=== PATIENT | female | born 1965 | race Caucasian/White ===

== ENCOUNTER → 2017-12-26 | Outpatient (CLI) | payer OTHER | LOC: LAB 14:38 | PROVIDERS: ATTEND Internal Medicine | DX: J39.8 Other specified diseases of upper respiratory tract (principal) | CPT/HCPCS: 36415; 83516 ==

== ENCOUNTER → 2018-03-09 | Outpatient (CLI) | payer OTHER | LOC: LAB 13:37 | PROVIDERS: ATTEND Nurse Practitioner Family | DX: K52.9 Noninfective gastroenteritis and colitis, unspecified (principal) | CPT/HCPCS: 87493 ==

== ENCOUNTER 2018-05-04 12:41 | Inpatient (IN) | payer OTHER ==
[~2018-05-04] VITALS: Ht 167.6 cm; Wt 59.5 kg
--- NOTE | 2018-05-04 12:45 | ER Report ---
History and Physical Time Seen By MD: 12:45 HPI/ROS CHIEF COMPLAINT: Shortness of breath HISTORY OF PRESENT ILLNESS: This is a 53-year-old female who presents to the emergency department with increased shortness of breath over the last 2 weeks. Patient states that over the last couple weeks she's had increased shortness of breath, she has been traveling quite a bit for work. She's had a nonproductive cough. A few mild aches but no documented fevers. She has generalized weakness as well. 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 No nausea or vomiting. No diaphore sis. No chest pain. No rashes or headaches. REVIEW OF SYSTEMS: Constitutional: As above. Eyes: No discharge. ENT: No sore throat. Cardiovascular: No chest pain, no palpitations. Respiratory: As above. Gastrointestinal: No abdominal pain, no vomiting. Genitourinary: No hematuria. Musculoskeletal: No back pain. Skin: No rashes. Neurological: No headache. Allergies: Coded Allergies: Penicillins (Verified Allergy, Intermediate, rash, 05/04/18) Quinolones (Verified Allergy, Intermediate, tendonitis, 05/04/18) cat dander (Verified Allergy, Mild, Hives, 05/04/18) Uncoded Allergies: pollen (Adverse Reaction, Mild, sneeze, 05/04/18) Home Meds Reported Medications Calcium Carbonate (CALCIUM) 600 Mg Tablet, 600 MG PO DAILY 05/04/18 Multivitamin (MULTIVITAMINS) 1 Each Capsule, 1 EACH PO DAILY, CAPSULE 05/04/18 Budesonide (BUDESONIDE EC) 3 Mg Capdr...er 05/04/18 Venlafaxine Hcl (VENLAFAXINE HCL ER) 75 Mg Cap.er.24h 05/04/18 Topiramate (TOPIRAMATE) 100 Mg Tablet 05/04/18 Venlafaxine Hcl (VENLAFAXINE HCL ER) 150 Mg Cap.er.24h 05/04/18 Naratriptan Hcl (NARATRIPTAN HCL) 2.5 Mg Tablet 05/04/18 Sumatriptan Succinate (SUMATRIPTAN SUCCINATE) 100 Mg Tablet 05/04/18 Butalb/Acetaminophen/Caff 50-325-40 Mg (FIORICET 50-325-40) 1 Each Tablet 05/04/18 Erenumab-Aooe (Aimovig Autoinjector (2 Pack)) 70 Mg/Ml Auto.injct 05/04/18 Fluticasone Prop 50 Mcg Ns (FLONASE 50 MCG NS) 16 Gm [place].susp 05/04/18 Levothyroxine Sodium (LEVOTHYROXINE SODIUM) 100 Mcg Tablet 05/04/18 Past Medical/Surgical History The patient has a past medical and surgical history of subglottic stenosis, lymphatic colitis, celiac disease, hypothyroidism, uterine prolapse with suspension, knee surgery to remove a bone spur, subglottic dilation 8, endoscopy 2, colonoscopy 1. Reviewed Nurses Notes: Yes Constitutional Vital Sign - Last 24 Hours 05/04/18 05/04/18 05/04/18 05/04/18 12:47 12:48 13:00 13:11 Temp 97.7 Pulse 112 105 Resp 22 22 B/P (MAP) 103/72 (82) 103/72 105/91 (96) Pulse Ox 92 87 O2 Delivery Room Air 05/04/18 05/04/18 05/04/18 05/04/18 13:30 13:35 13:45 13:55 Pulse 101 101 Resp 22 18 B/P (MAP) 105/81 (89) O2 Flow Rate 2.0 05/04/18 05/04/18 05/04/18 05/04/18 13:55 14:04 14:04 14:05 Pulse 105 110 Resp 18 22 B/P (MAP) 109/88 (95) Pulse Ox 93 93 O2 Delivery Nasal Cannula O2 Flow Rate 2.0 05/04/18 05/04/18 05/04/18 05/04/18 14:30 14:35 15:00 15:05 Pulse 114 Resp 24 B/P (MAP) 113/86 (95) 95/76 (82) Pulse Ox 87 92 O2 Delivery Nasal Cannula O2 Flow Rate 2 Physical Exam General Appearance: The patient is alert, has no immediate need for airway protection and no signs of toxicity. Eyes: Pupils equal and round no pallor or injection. ENT, Mouth: Mucous membranes are moist. Respiratory: There are no retractions, lungs are clear to auscultation but dim in bilateral bases. Dullness to percussion Right lower lobe. Cardiovascular: Regular rate and rhythm, no murmurs, clicks or rubs. Gastrointestinal: Abdomen is soft and non tender, no masses, bowel sounds normal. Neurological: Alert and oriented 4. Moving all extremities. Following all commands. No focal neuro deficits. Skin: Warm and dry, no rashes. Musculoskeletal: Neck is supple non tender. Extremities are nontender, nonswollen and have full range of motion. DIFFERENTIAL DIAGNOSIS: After history and physical exam differential diagnosis was considered for shortness of breath including but not limited to pulmonary infectious process, COPD, asthma, pulmonary embolus and congestive heart failure. Medical Decision Making Data Points Result Diagram: 05/04/18 1256 05/04/18 1256 Laboratory Hematology Test 05/04/18 12:56 05/04/18 13:24 Red Blood Count 4.65 M/uL (4.17-5.56) Mean Corpuscular Volume 96.0 fL (80.0-96.0) Mean Corpuscular Hemoglobin 31.4 pg (26.0-33.0) Mean Corpuscular Hemoglobin Concent 32.7 g/dL (32.0-36.0) Red Cell Distribution Width 15.7 % (11.5-14.5) Mean Platelet Volume 9.0 fL (7.2-11.1) Neutrophils (%) (Auto) 62.5 % (39.4-72.5) Lymphocytes (%) (Auto) 29.2 % (17.6-49.6) Monocytes (%) (Auto) 7.3 % (4.1-12.4) Eosinophils (%) (Auto) 0.7 % (0.4-6.7) Basophils (%) (Auto) 0.3 % (0.3-1.4) Nucleated RBC Relative Count (auto) 0.1 /100WBC Neutrophils # (Auto) 5.1 K/uL (2.0-7.4) Lymphocytes # (Auto) 2.4 K/uL (1.3-3.6) Monocytes # (Auto) 0.6 K/uL (0.3-1.0) Eosinophils # (Auto) 0.1 K/uL (0.0-0.5) Basophils # (Auto) 0.0 K/uL (0.0-0.1) Nucleated RBC Absolute Count (auto) 0.01 K/uL D-Dimer Quantitative (PE/DVT) 0.57 ug/ml (0-0.50) Sodium Level 139 mmol/L (137-145) Potassium Level 3.5 mmol/L (3.5-5.0) Chloride Level 113 mmol/L (98-107) Carbon Dioxide Level 22 mmol/L (22-31) Blood Urea Nitrogen 14 mg/dl (7-18) Creatinine 1.00 mg/dl (0.52-1.04) Glomerular Filtration Rate Calc 57.6 Random Glucose 149 mg/dl (75-110) Calcium Level 8.7 mg/dl (8.4-10.2) Total Bilirubin 0.6 mg/dl (0.2-1.3) Aspartate Amino Transf (AST/SGOT) 38 U/L (0-35) Alanine Aminotransferase (ALT/SGPT) 79 U/L (0-56) Alkaline Phosphatase 103 U/L (0-126) Troponin I < 0.012 ng/ml B-Type Natriuretic Peptide 1520 pg/ml (0-100) Total Protein 6.4 g/dl (6.3-8.2) Albumin 3.7 g/dl (3.5-5.0) Influenza Virus Type A (PCR) Negative (NEGATIVE) Influenza Virus Type B (PCR) Negative (NEGATIVE) Chemistry Test 05/04/18 12:56 05/04/18 13:24 White Blood Count 8.2 k/uL (4.5-11.0) Red Blood Count 4.65 M/uL (4.17-5.56) Hemoglobin 14.6 g/dL (12.0-16.0) Hematocrit 44.7 % (34.0-47.0) Mean Corpuscular Volume 96.0 fL (80.0-96.0) Mean Corpuscular Hemoglobin 31.4 pg (26.0-33.0) Mean Corpuscular Hemoglobin Concent 32.7 g/dL (32.0-36.0) Red Cell Distribution Width 15.7 % (11.5-14.5) Platelet Count 325 K/uL (150-450) Mean Platelet Volume 9.0 fL (7.2-11.1) Neutrophils (%) (Auto) 62.5 % (39.4-72.5) Lymphocytes (%) (Auto) 29.2 % (17.6-49.6) Monocytes (%) (Auto) 7.3 % (4.1-12.4) Eosinophils (%) (Auto) 0.7 % (0.4-6.7) Basophils (%) (Auto) 0.3 % (0.3-1.4) Nucleated RBC Relative Count (auto) 0.1 /100WBC Neutrophils # (Auto) 5.1 K/uL (2.0-7.4) Lymphocytes # (Auto) 2.4 K/uL (1.3-3.6) Monocytes # (Auto) 0.6 K/uL (0.3-1.0) Eosinophils # (Auto) 0.1 K/uL (0.0-0.5) Basophils # (Auto) 0.0 K/uL (0.0-0.1) Nucleated RBC Absolute Count (auto) 0.01 K/uL D-Dimer Quantitative (PE/DVT) 0.57 ug/ml (0-0.50) Glomerular Filtration Rate Calc 57.6 Calcium Level 8.7 mg/dl (8.4-10.2) Total Bilirubin 0.6 mg/dl (0.2-1.3) Aspartate Amino Transf (AST/SGOT) 38 U/L (0-35) Alanine Aminotransferase (ALT/SGPT) 79 U/L (0-56) Alkaline Phosphatase 103 U/L (0-126) Troponin I < 0.012 ng/ml B-Type Natriuretic Peptide 1520 pg/ml (0-100) Total Protein 6.4 g/dl (6.3-8.2) Albumin 3.7 g/dl (3.5-5.0) Influenza Virus Type A (PCR) Negative (NEGATIVE) Influenza Virus Type B (PCR) Negative (NEGATIVE) Coagulation Test 05/04/18 12:56 D-Dimer Quantitative (PE/DVT) 0.57 ug/ml EKG/Imaging EKG Interpretation 12 lead EKG: Time of EKG 1304. Rhythm: Sinus tachycardia, ventricular rate 106 bpm., Occasional PVC. [place]: normal QRS: normal ST segments: No ST depression or elevation identified. Q waves in V1, V2, V3 and V4 with poor R-wave progression. No previous EKGs for comparison. Imaging Location: [facility] Patient: Rayne Pederson : 1965 Visit/Account:[id number] [facility] angiogram chest with contrast Indication: Shortness of breath. Elevated d-dimer. Comparison: None available. Technique: Axial CT images are obtained through the chest after administration of 75 mL Isovue 370 IV contrast. Reformatted coronal and sagittal images were reviewed as well as coronal MIP images. One of the following dose optimization techniques was utilized in the performance of this exam: automated exposure control; adjustment of the mA and/or kV according to the patient's size; or use of an iterative reconstruction technique. Specific details can be referenced in the facility's radiology CT exam operational policy. FINDINGS: No evidence of filling defect within the pulmonary vasculature to suggest pulmonary embolus. The heart is diffusely enlarged. No pericardial effusion. The aorta shows no indication of aneurysm. The aorta is not well opacified to assess for dissection. The mediastinum and hilar regions show a few small lymph nodes without enlarged lymph node or abnormal density. The lungs show small the moderate bilateral pleural effusions. There is hazy interstitial opacities suggestive edema. No consolidations, pneumothorax or discrete nodule. Airways are clear. Bony structures show no acute fractures or aggressive bony lesions. Chest wall shows no enlarged axillary lymph nodes or masses. Limited views of the upper abdomen are unremarkable. IMPRESSION: 1. No evidence of pulmonary embolus. 2. Cardiomegaly. Mild diffuse pulmonary edema. [id number] bilateral pleural effusions. Report Dictated By: Héctor Myles at 05/04/2018 2:06 PM Report E-Signed By: Héctor Myles at 05/04/2018 2:14 PM [id number] ED Course/Re-evaluation Clinical Indication for ER IV: Hydration, IV Access ED Course The patient was admitted to room. A history of square obtained. Differential diagnoses were considered. An IV was started. A CBC, CMP, troponin and BNP were obtained. A 1 L normal saline bolus was given.Unremarkable CBC, chemistry showing glucose 149, AST 38, ALT 79, negative troponin, BNP of 1520, d-dimer 0.57, negative influenza. A CTA of the chest was negative for pulmonary embolus, positive for bilateral pleural effusions, pulmonary edema. Cardiomegaly. EKG showing Q waves in V2, V3 and V4 with poor R-wave progression. No previous EKGs for comparison. No ST elevation. I did review the results with the patient. She was also given a DuoNeb and 40 mg IV Lasix. I reviewed the case with Dr. Long as noted below, the patient was admitted to the hospitalist services for hypoxia, pleural effusions and pulmonary edema. The patient was in agreement with the plan of care. 05/04/2018 2:57:16 pm I did speak with Dr. Long, the hospitalist quality control auditor, he's accepted the patient in the hospitalist services. Decision to Disposition Date: May 04, 2018 Decision to Disposition Time: 14:57 Depart Departure Latest Vital Signs Vital Signs Date Time Temp Pulse Resp B/P (MAP) Pulse Ox O2 Delivery O2 Flow Rate FiO2 05/04/18 15:05 92 Nasal Cannula 2 05/04/18 15:00 95/76 (82) 05/04/18 14:35 114 24 05/04/18 12:48 97.7 Impression: Primary Impression: Pulmonary edema Additional Impressions: Bilateral pleural effusion Hypoxia Condition: Improved Disposition: Admitted from ER Problem Qualifiers Primary Impression: Pulmonary edema Chronicity: acute Qualified Codes: J81.0 - Acute pulmonary edema ANDREA VACA LOGGING TRACTOR OPERATOR SWAMP-BC May 04, 2018 12:45
[2018-05-04] MEDS ORDERED: NS(*) 0.9% 1000 ML BAG 1,000 ML IV ONE (13:03)
--- NOTE | 2018-05-04 13:13 | EKG ---
FACILITY: [facility] [place] PATIENT NAME: JORGE GLOVER : [id number] MR: [id number] V: [id number] EXAM DATE: ORDERING PHYSICIAN: ANDREA VACA TECHNOLOGIST: CHET Karimi Reason : RESPIRATORY Blood Pressure : / mmHG Vent. Rate : 106 BPM Atrial Rate : 106 BPM P-R Int : 146 ms QRS Dur : 090 ms QT Int : 382 ms P-R-T Axes : 049 022 227 degrees QTc Int : 507 ms Sinus tachycardia with occasional premature ventricular complexes Septal infarct , age undetermined Abnormal ECG No previous ECGs available Confirmed by EMILIANO WHITTEN ([id number]) on 05/04/2018 2:53:31 PM Referred By: Confirmed By:EMILIANO WHITTEN
[2018-05-04 13:15] LABS: PLATELET COUNT, AUTOMATED 325 K/uL (150-450)
[2018-05-04] MEDS ORDERED: TOPI-28 PO (13:15)
[2018-05-04] MEDS ORDERED: VENL150C3 PO (13:15)
[2018-05-04] MEDS ORDERED: SUMA100T33 PO (13:15)
[2018-05-04] MEDS ORDERED: EREN70AU2 SUBQ (13:15)
[2018-05-04] MEDS ORDERED: BUTA1TAB14 PO (13:15)
[2018-05-04] MEDS ORDERED: LEVO-3 PO (13:15)
[2018-05-04] MEDS ORDERED: FLUT16SP19 ENA (13:15)
[2018-05-04] MEDS ORDERED: MULT1CAP59 PO (13:15)
[2018-05-04] MEDS ORDERED: NARA2.5T6 PO (13:15)
[2018-05-04] MEDS ORDERED: BUDE3CAP6 PO (13:15)
[2018-05-04] MEDS ORDERED: VENL75CA4 PO (13:15)
[2018-05-04] MEDS ORDERED: CALC600T63 PO (13:15)
[2018-05-04] MEDS ORDERED: NS(*) 0.9% 50 ML BAG 50 ML ONE (13:46)
[2018-05-04] MEDS ORDERED: IOPAMIDOL 76% 50 ML INFUS BTL 100 ML ONE (13:46)
[2018-05-04] MEDS ORDERED: FUROSEMIDE 40 MG/4 ML VIAL IVP ONE (13:55)
[2018-05-04] MEDS ORDERED: ALBUTEROL/IPRATROPIUM 3 ML NEB NEB ONE (13:55)
--- NOTE | 2018-05-04 14:19 | RADIOLOGY IMAGING REPORT ---
FACILITY: [facility] PATIENT NAME: Rayen Pederson : 1965 MR: [id number] V: [id number] EXAM DATE: ORDERING PHYSICIAN: ANDREA VACA TECHNOLOGIST: Location: [facility] [place] Patient: Rayne Pederson : 1965 Visit/Account:[id number] Date of Sevice: 05/04/2018 CT angiogram chest with contrast Indication: Shortness of breath. Elevated d-dimer. Comparison: None available. Technique: Axial CT images are obtained through the chest after administration of 75 mL Isovue 370 IV contrast. Reformatted coronal and sagittal images were reviewed as well as coronal MIP images. One of the following dose optimization techniques was utilized in the performance of this exam: auto mated exposure control; adjustment of the mA and/or kV according to the patient's size; or use of an iterative reconstruction technique. Specific details can be referenced in the facility's radiology C T exam operational policy. FINDINGS: No evidence of filling defect within the pulmonary vasculature to suggest pulmonary embolus. The heart is diffusely enlarged. No pericardial effusion. The aorta shows no indication of aneurysm. The aorta is not well opacified to assess for dissection. The mediastinum and hilar regions show a fe w small lymph nodes without enlarged lymph node or abnormal density. The lungs show small the moderate bilateral pleural effusions. There is hazy interstitial opacities s uggestive edema. No consolidations, pneumothorax or discrete nodule. Airways are clear. Bony structures show no acute fractures or aggressive bony lesions. Chest wall shows no enlarged axil romy lymph nodes or masses. Limited views of the upper abdomen are unremarkable. IMPRESSION: 1. No evidence of pulmonary embolus. 2. Cardiomegaly. Mild diffuse pulmonary edema. [id number]-[id number]-[id number] bilateral pleural effusions. Report Dictated By: Héctor Myles at 05/04/2018 2:06 PM Report E-Signed By: Héctor Myles at 05/04/2018 2:14 PM WSN:[id number]
[2018-05-04 15:45] VITALS: BP 117/81
--- NOTE | 2018-05-04 16:28 | History & Physical ---
History of Present Illness Chief Complaint Fatigue and shortness of breath. History of Present Illness This patient presented to the emergency room complaining of increased fatigue and shortness of breath. She reports that she started to have increased fatigue over the last 2 weeks. It has progressed to the point where she can no longer complete her activities of daily living. She also reports associated shortness of breath, which is worse when lying down. History Problems: (1) Celiac disease (2) Migraine (3) Hypothyroid Home Meds Reported Medications Calcium Carbonate (CALCIUM) 600 Mg Tablet, 600 MG PO DAILY 05/04/18 Multivitamin (MULTIVITAMINS) 1 Each Capsule, 1 EACH PO DAILY, CAPSULE 05/04/18 Budesonide (BUDESONIDE EC) 3 Mg Capdr...er 05/04/18 Venlafaxine Hcl (VENLAFAXINE HCL ER) 75 Mg Cap.er.24h 05/04/18 Topiramate (TOPIRAMATE) 100 Mg Tablet 05/04/18 Venlafaxine Hcl (VENLAFAXINE HCL ER) 150 Mg Cap.er.24h 05/04/18 Naratriptan Hcl (NARATRIPTAN HCL) 2.5 Mg Tablet 05/04/18 Sumatriptan Succinate (SUMATRIPTAN SUCCINATE) 100 Mg Tablet 05/04/18 Butalb/Acetaminophen/Caff 50-325-40 Mg (FIORICET 50-325-40) 1 Each Tablet 05/04/18 Erenumab-Aooe (Aimovig Autoinjector (2 Pack)) 70 Mg/Ml Auto.injct 05/04/18 Fluticasone Prop 50 Mcg Ns (FLONASE 50 MCG NS) 16 Gm [place].susp 05/04/18 Levothyroxine Sodium (LEVOTHYROXINE SODIUM) 100 Mcg Tablet 05/04/18 Allergies: Coded Allergies: Penicillins (Verified Allergy, Intermediate, rash, 05/04/18) Quinolones (Verified Allergy, Intermediate, tendonitis, 05/04/18) cat dander (Verified Allergy, Mild, Hives, 05/04/18) Uncoded Allergies: pollen (Adverse Reaction, Mild, sneeze, 05/04/18) Hx Alcohol Use: No Review of Systems All Systems Reviewed/Normal: Yes, Except as Noted Neurological: Weakness Respiratory: Shortness of Breath Exam Vital Signs Vital Signs Date Time Temp Pulse Resp B/P (MAP) Pulse Ox O2 Delivery O2 Flow Rate FiO2 05/04/18 15:48 93 05/04/18 15:45 96.8 109 22 117/81 (93) Room Air 05/04/18 15:05 2 Neuro: No Gross deficits Eyes: PERRLA Cardiovascular: Regular Rate and Rhythm, Other (JVD present.) Respiratory: Other (Bilateral pleural effusions present.) GI: Abd Soft and Non-Tender Extremities: No Edema Integumentary: No Cyanosis Medical Decision Making Data Points Result Diagram: 05/04/18 1256 05/04/18 1256 EKG / Imaging EKG Interpretation EKG reviewed. Imaging CT chest reviewed. Assessment and Plan Problems: (1) Acute heart failure Assessment & Plan: She did present with increased fatigue and shortness of breath. Her CT scan showed bilateral pleural effusions and cardiomegaly. Her BNP was also elevated. She did receive a dose of Lasix in the emergency dept. An echocardiogram has been ordered for further evaluation. (2) Hypothyroid Assessment & Plan: A TSH has been ordered. Venous Thromboembolism Antithrombotics Is Pt On Any Antithrombotics?: No Exam Sepsis Risk: Possible Sepsis Risk EMILIANO WHITTEN DO May 04, 2018 16:28
[2018-05-04 19:38] VITALS: BP 108/90
[2018-05-04] MEDS ORDERED: FUROSEMIDE 20 MG/2 ML VIAL IVP ONE (20:20)
[2018-05-04] MEDS ORDERED: TOPIRAMATE 100 MG TAB PO SCH (22:40)
[2018-05-04 23:18] VITALS: BP 91/75
[2018-05-05 05:21] VITALS: BP 106/79
[2018-05-05] MEDS ORDERED: LEVOTHYROXINE SOD 0.1 MG TAB PO SCH (06:00)
[2018-05-05 06:22] LABS: PLATELET COUNT, AUTOMATED 318 K/uL (150-450)
--- NOTE | 2018-05-05 06:50 | RADIOLOGY IMAGING REPORT ---
FACILITY: [facility] PATIENT NAME: Rayne Pederson : 1965 MR: [id number] V: [id number] EXAM DATE: ORDERING PHYSICIAN: EMILIANO WHITTEN TECHNOLOGIST: Location: [facility] Patient: Rayne Pederson : 1965 Visit/Account:[id number] Date of Sevice: 05/05/2018 TWO VIEW CHEST 05/05/2018 6:00 AM. INDICATION: Congestive heart failure. COMPARISON: CT yesterday. FINDINGS: Lungs are well-expanded. No definite focal consolidation no apparent pleural effusion or p neumothorax. Pulmonary vasculature is unremarkable. Borderline enlarged heart. IMPRESSION: Borderline enlarged heart with no apparent evidence of congestive heart failure. Report Dictated By: Dean Meehan MD at 05/05/2018 6:38 AM Report E-Signed By: Dean Meehan MD at 05/05/2018 6:41 AM WSN:[id number]
[2018-05-05 07:47] VITALS: BP 95/59
[2018-05-05] MEDS ORDERED: ACETAMINOPHEN 500 MG TAB PO PRN (09:15)
[2018-05-05] MEDS: POTASSIUM CHL 20 MEQ TABCR PO SCH ×2 (10:41→17:41)
[2018-05-05] MEDS ORDERED: VENLAFAXINE XR 75 MG CAPCR PO SCH (12:00)
[2018-05-05 12:02] VITALS: BP 98/59
--- NOTE | 2018-05-05 14:43 | Hospitalist Progress Note ---
Subjective Progress Notes Subjective 53F admitted for acute CHF. LISA overnight, improving with diuresis. Physical Exam Vital Signs Date Time Temp Pulse Resp B/P (MAP) Pulse Ox O2 Delivery O2 Flow Rate FiO2 05/05/18 12:02 97.8 99 18 98/59 (72) 91 Room Air 05/04/18 19:38 2.0 Intake and Output 05/05/18 07:00 Intake Total 1540 ml Output Total 3100 ml Balance -1560 ml Intake Oral 540 ml IV Total 1000 ml Output Urine Total 3100 ml # Voids 4 General Appearance: Alert, Awake, No Acute Distress, Afebrile ENT: Normal Cardiovascular: Normal Rhythm & Peripheral Pulses Respiratory: No Respiratory Distress GI: Soft and Non-Tender Extremities: Soft and Non Tender, Warm, Pulses, Perfused; No Edema Integumentary: Skin Intact without Lesion / Mass Result Diagram: 05/05/1855305/05/18553 Assessment and Plan Problems: (1) Acute heart failure Assessment & Plan: She did present with increased fatigue and shortness of breath. Her CT scan showed bilateral pleural effusions and cardiomegaly. Her BNP was also elevated. She did receive a dose of Lasix in the emergency dept. Echo shows 30-35% EF with severe mitral regurgitation, dilated ventricles with global hypokinesis. Discussed with Dr Li who recommends continuing with current management for CHF and outpatient follow up in Structural heart clinic ([phone]) for AB and LHC. Will likely need valve repair as outpatient after work up. (2) Hypothyroid Assessment & Plan: A TSH has been ordered. Exam Sepsis Risk: Sepsis Risk MATTEO CURTIS DO May 05, 2018 14:43
--- NOTE | 2018-05-05 15:06 | Medical Nutrition Therapy ---
Nutrition Anthropometrics Height (Inches): 66.00 Height (Calculated Centimeters: 167.738615 Weight (Pounds): 131 Weight (Calculated Kilograms): 59.534 BMI: 21.2 Florian Nutrition Score: Adequate Florian Nutrition Risk Score: 22 Dietary Referral Nutrition Risk Factors: Special Diet Nutrition Risk Comment: gluten free diet. Nutritional Diagnosis Nutritional Risk Acuity 1: Acute/ES Renal Nutritional Risk Acuity 3: Fair Appetite Nutrition Diagnosis: Decreased Nutrient Needs Nutrition Etiology: Physiological Causes Nutrition Problem/Etiology/Sym: Decreased Na, phos, protein, K+ r/t dx ARF AEB creatinine 1.1. Energy Requirement: 1570 (M- St J) Protein Requirement: 47 Diet Type: Gluten Free Nutrition Intervention: Cont diet as ordered, Encourage intake Nutrition Monitoring & Eval Nutrition Goals: Eat 75-100% Meal RD Patient Assessment Time: [address] Assessment Type: RD Assessment Patient Nutrition Acuity: 2-Moderate Follow Up Date: May 08, 2018 Nutritional Comment: 2/1 Pt admitted for ARF. Pt on gluten free diet and ate 75% of first meal in facility. alb 3.1, BUN 14, creatinine 1.1. Bg 119-145. Will cont to monitor and encourage intake. BRENNA REID May 05, 2018 15:06
[2018-05-05 15:53] VITALS: BP 93/74
[2018-05-05] MEDS ORDERED: METOPROLOL SUCC XL 25 MG TABCR PO ONE (17:20)
[2018-05-05] MEDS ORDERED: FURO-45 PO (17:36)
[2018-05-05] MEDS ORDERED: POTA20TA94 PO (17:36)
[2018-05-05] MEDS ORDERED: METO25TA23 PO (17:36)
--- NOTE | 2018-05-05 17:44 | Hospitalist Depart ---
Discharge Summary Reason for Hosp/Final Diag: (1) Acute heart failure Hospital Course & Plan: She did present with increased fatigue and shortness of breath. Her CT scan showed bilateral pleural effusions and cardiomegaly. Her BNP was also elevated. She received a dose of Lasix in the emergency dept. Echo shows 30-35% EF with severe mitral regurgitation, dilated ventricles with global hypokinesis. Discussed with Dr Li who recommends starting beta matthew and diuretic and outpatient follow up in Structural heart clinic ([phone]) for AB and LHC. She has history of Celiac, hyothyroid, and positive PARRISH which have been associated with HF. Will likely need valve repair as outpatient after work up. Metoprolol succinate chosen for BB to minimize impact on BP. (2) Hypothyroid Hospital Course & Plan: A TSH has been ordered and is pending at discharge. Departure Weight (Pounds): 131 Weight (Ounces): 4.0 Result Diagram: 05/05/1855305/05/18553 Condition: Improved Discharge: Home Discharge Instructions Home Meds Active Scripts Potassium Chloride (POTASSIUM CHLORIDE) 20 Meq Tab.er.prt, 20 MEQ PO Q48H for 30 Days, #15 TAB Prov:MATTEO CURTIS DO 05/05/18 Furosemide (FUROSEMIDE) 20 Mg Tablet, 1 TAB PO Q24H for 30 Days, #30 TAB Prov:MATTEO CURTIS DO 05/05/18 Metoprolol Succinate (METOPROLOL SUCCINATE) 25 Mg Tab.er.24h, 12.5 MG PO ONCE for 30 Days, #30 TAB Take one half tablet daily. Prov:MATTEO CURTIS DO 05/05/18 Reported Medications Calcium Carbonate (CALCIUM) 600 Mg Tablet, 600 MG PO DAILY 05/04/18 Multivitamin (MULTIVITAMINS) 1 Each Capsule, 1 EACH PO DAILY, CAPSULE 05/04/18 Budesonide (BUDESONIDE EC) 3 Mg Capdr...er, 3 MG PO QDAY START WITH 3 CAPSULES PO QD FOR 2 MONTHS, THEN 2 CAPSULES PO QD FOR 1 MONTH, THEN 1 CAPSULE PO QD FOR 1 MONTH 05/04/18 Venlafaxine Hcl (VENLAFAXINE HCL ER) 75 Mg Cap.er.24h, 225 MG PO QDAY TAKE ONE 150 MG CAPSULE + ONE 75 MG CAPSULE = 225 MG DAILY 05/04/18 Topiramate (TOPIRAMATE) 100 Mg Tablet, 100 MG PO HS FOR MIGRAINE PREVENTION 05/04/18 Venlafaxine Hcl (VENLAFAXINE HCL ER) 150 Mg Cap.er.24h, 225 MG PO QDAY 05/04/18 Naratriptan Hcl (NARATRIPTAN HCL) 2.5 Mg Tablet, 2.5 MG PO TAKE ONE TABLET BY MOUTH AT ONSET OF MIGRAINE, MAY TAKE ONE ADDITIONAL TABLET 4 HOURS LATER NEEDED 05/04/18 Sumatriptan Succinate (SUMATRIPTAN SUCCINATE) 100 Mg Tablet, 100 MG PO QDAY PRN for MIGRAINE MAX 1 TABLETS IN 24 HOURS 05/04/18 Butalb/Acetaminophen/Caff 50-325-40 Mg (FIORICET 50-325-40) 1 Each Tablet, 1 TAB PO Q6H PRN for MIGRAINE 05/04/18 Erenumab-Aooe (Aimovig Autoinjector (2 Pack)) 70 Mg/Ml Auto.injct, 2 ML SUBQ Q30D FOR MIGRAINE PREVENTION 05/04/18 Fluticasone Prop 50 Mcg Ns (FLONASE 50 MCG NS) 16 Gm [place].susp, 2 SPRAYS [place] QDAY 05/04/18 Levothyroxine Sodium (LEVOTHYROXINE SODIUM) 100 Mcg Tablet, 100 MCG PO QAM 05/04/18 Special Instructions: Weigh daily until cardiology appointment if weight increases by 3lb in one day or 5lb in 2 days take extra dose of furosemide. Venous Thromboembolism Antithrombotics Is Pt On Any Antithrombotics?: No MATTEO CUTRIS DO May 05, 2018 17:44
[2018-05-05 18:00] VITALS: BP 87/66
[2018-05-05 18:49] VITALS: BP 97/76
[2018-05-06] MEDS ORDERED: INFLUENZA VIRUS VAC 0.5ML SYR IM ONLY ONE (16:05)
== END 2018-05-05 19:10 | disposition home or self-care (01) | DRG 293 ==
LOC: ER 12:50 → MED 15:07
PROVIDERS: ADMIT Family Medicine; ATTEND Family Medicine
DX: I50.9 Heart failure, unspecified (principal); K90.0 Celiac disease; I34.0 Nonrheumatic mitral (valve) insufficiency; E03.9 Hypothyroidism, unspecified; K52.832 Lymphocytic colitis; J38.6 Stenosis of larynx; R09.02 Hypoxemia; Z88.0 Allergy status to penicillin
CPT/HCPCS: 36415; 71046; 71275; 82040; 82247; 82310; 82374; 82435; 82565; 82947; 83880; 84075; 84132; 84155; 84295; 84443; 84450; 84460; 84484; 84520; 85025; 85379; 85651; 87502; 93005; 94640; 96361; 96375; 99284; J1940; J7030; J7050; Q9967

== ENCOUNTER → 2018-06-02 | Outpatient (CLI) | payer OTHER ==
[~2018-06-02] MED LIST: ACET-1966 PO; BUDE3CAP6 PO; BUTA1TAB14 PO; CALC600T63 PO; EREN70AU2 SUBQ; FLUT16SP19 ENA; FURO-45 PO; LEVO-3 PO; LISI2.5T60 PO; METO25TA23 PO; MULT1CAP59 PO; NARA2.5T6 PO; POTA20TA94 PO; SUMA100T33 PO; TOPI-28 PO; VENL150C3 PO; VENL75CA4 PO; amberen PO
[2018-06-02 13:06] LABS: PLATELET COUNT, AUTOMATED 220 K/uL (150-450)
--- NOTE | 2018-06-02 15:32 | EKG ---
FACILITY: [facility] [place] PATIENT NAME: JORGE GLOVER : [id number] MR: [id number] V: [id number] EXAM DATE: ORDERING PHYSICIAN: BETTINA MCINTOSH TECHNOLOGIST: LEAH DAY Test Reason : CHF Blood Pressure : / mmHG Vent. Rate : 082 BPM Atrial Rate : 082 BPM P-R Int : 168 ms QRS Dur : 104 ms QT Int : 412 ms P-R-T Axes : 070 -60 -82 degrees QTc Int : 481 ms Normal sinus rhythm Left anterior fascicular block ST and T wave abnormality, consider anterolateral ischemia Prolonged QT Abnormal ECG No previous ECGs available Referred By: Confirmed By:
== END ==
LOC: LAB 12:24
PROVIDERS: ATTEND Emergency Medicine
DX: B33.24 Viral cardiomyopathy (principal)
CPT/HCPCS: 36415; 82040; 82247; 82310; 82374; 82435; 82565; 82947; 83880; 84075; 84132; 84155; 84295; 84443; 84450; 84460; 84484; 84520; 85025

== ENCOUNTER → 2018-06-02 | Outpatient (CLI) | payer OTHER | LOC: LAB 17:08 | PROVIDERS: ATTEND Emergency Medicine | DX: R74.8 Abnormal levels of other serum enzymes (principal) | CPT/HCPCS: 36415; 84484 ==

== ENCOUNTER 2018-06-11 11:12 | Emergency (ER) | payer OTHER ==
--- NOTE | 2018-06-11 11:25 | ER Report ---
History and Physical Time Seen By MD: 11:25 HPI/ROS CHIEF COMPLAINT: Lightheadedness, numbness to the left side of body, visual changes HISTORY OF PRESENT ILLNESS: 53-year-old female patient presents to emergency room with complaint of lightheadedness, numbness in left side of body and visual changes. Patient states that it feels as if she has an aura for a migraine. She does have a history of migraines and has had numerous migraines per month for several years. She is currently been on a new medication and has not had a migraine for month and a half. Patient states that she was getting ready for yazdanism, stood up and felt very lightheaded. Shortly after that the rest the symptoms started. Patient denies any weakness, nausea, vomiting or diarrhea. Patient states she straightened have a headache to the right side of head. Patient normally takes Imitrex with good relief for her migraines. REVIEW OF SYSTEMS: Respiratory: No cough, no dyspnea. Cardiovascular: No chest pain, no palpitations. Gastrointestinal: No vomiting, no abdominal pain. Musculoskeletal: No back pain. Allergies: Coded Allergies: Penicillins (Verified Allergy, Intermediate, rash, 06/11/18) Quinolones (Verified Allergy, Intermediate, tendonitis, 06/11/18) cat dander (Verified Allergy, Mild, Hives, 06/11/18) gluten (Verified Allergy, Unknown, 06/11/18) Celiac's disease Uncoded Allergies: pollen (Adverse Reaction, Mild, sneeze, 05/04/18) Home Meds Active Scripts Potassium Chloride (POTASSIUM CHLORIDE) 20 Meq Tab.er.prt, 20 MEQ PO DAILY for 30 Days, #15 TAB Prov:BETTINA MCINTOSH MD 06/02/18 Furosemide (FUROSEMIDE) 20 Mg Tablet, 1 TAB PO Q24H for 30 Days, #30 TAB Prov:MATTEO CURTIS DO 05/05/18 Metoprolol Succinate (METOPROLOL SUCCINATE) 25 Mg Tab.er.24h, 12.5 MG PO ONCE for 30 Days, #30 TAB Take one half tablet daily. Prov:MATTEO CURTIS DO 05/05/18 Reported Medications [amberen] No Conflict Check, 1 CAP PO PRN 06/02/18 Acetaminophen (TYLENOL) 325 Mg Tablet, 325 MG PO PRN, TAB 06/02/18 Lisinopril (LISINOPRIL) 2.5 Mg Tablet, 2.5 MG PO BID 06/02/18 Calcium Carbonate (CALCIUM) 600 Mg Tablet, 600 MG PO DAILY 05/04/18 Multivitamin (MULTIVITAMINS) 1 Each Capsule, 1 EACH PO DAILY, CAPSULE 05/04/18 Budesonide (BUDESONIDE EC) 3 Mg Capdr...er, 3 MG PO QDAY START WITH 3 CAPSULES PO QD FOR 2 MONTHS, THEN 2 CAPSULES PO QD FOR 1 MONTH, THEN 1 CAPSULE PO QD FOR 1 MONTH 05/04/18 Venlafaxine Hcl (VENLAFAXINE HCL ER) 75 Mg Cap.er.24h, 225 MG PO QDAY TAKE ONE 150 MG CAPSULE + ONE 75 MG CAPSULE = 225 MG DAILY 05/04/18 Topiramate (TOPIRAMATE) 100 Mg Tablet, 100 MG PO HS FOR MIGRAINE PREVENTION 05/04/18 Venlafaxine Hcl (VENLAFAXINE HCL ER) 150 Mg Cap.er.24h, 225 MG PO QDAY 05/04/18 Naratriptan Hcl (NARATRIPTAN HCL) 2.5 Mg Tablet, 2.5 MG PO TAKE ONE TABLET BY MOUTH AT ONSET OF MIGRAINE, MAY TAKE ONE ADDITIONAL TABLET 4 HOURS LATER NEEDED 05/04/18 Sumatriptan Succinate (SUMATRIPTAN SUCCINATE) 100 Mg Tablet, 100 MG PO QDAY PRN for MIGRAINE MAX 1 TABLETS IN 24 HOURS 05/04/18 Erenumab-Aooe (Aimovig Autoinjector (2 Pack)) 70 Mg/Ml Auto.injct, 2 ML SUBQ Q30D FOR MIGRAINE PREVENTION 05/04/18 Fluticasone Prop 50 Mcg Ns (FLONASE 50 MCG NS) 16 Gm [place].susp, 2 SPRAYS JUANJO QDAY 05/04/18 Levothyroxine Sodium (LEVOTHYROXINE SODIUM) 100 Mcg Tablet, 100 MCG PO QAM 05/04/18 Past Medical/Surgical History Patient has a past medical history of migraines, myocarditis, subglottic st enosis, lymphocytic colitis, celiac disease, hypothyroidism, depression. Patient has surgical history of a uterine suspension, Sascha's procedure, subglottic dilation 8, uterine suspension, bone spur knee, LASIK eye surgery endoscopy 2, colonoscopy 1. Reviewed Nurses Notes: Yes Hx Smoking: No Smoking Status: Never Smoker Exposure to Second Hand Smoke?: No Hx Substance Use Disorder: No Hx Alcohol Use: No Constitutional Vital Sign - Last 24 Hours 06/11/18 06/11/18 06/11/18 06/11/18 11:12 11:18 11:24 11:30 Temp 98.2 Pulse 82 89 Resp 12 B/P (MAP) 107/57 (74) 107/57 91/71 (78) Pulse Ox 95 O2 Delivery Room Air 06/11/18 06/11/18 06/11/18 06/11/18 11:42 12:00 12:12 12:30 Pulse 80 83 Resp 19 B/P (MAP) 95/67 (76) 96/77 (83) Pulse Ox 89 06/11/18 06/11/18 06/11/18 06/11/18 12:42 13:00 13:05 13:30 Pulse 89 87 Resp 16 15 B/P (MAP) 107/74 (85) 92/66 (75) Pulse Ox 91 91 06/11/18 06/11/18 13:35 14:00 Pulse 82 Resp 22 B/P (MAP) 92/70 (77) Pulse Ox 90 Physical Exam General Appearance: The patient is alert, has no immediate need for airway protection and no current signs of toxicity. Respiratory: Chest is non tender, lungs are clear to auscultation. Cardiac: regular rate and rhythm Gastrointestinal: Abdomen is soft and non tender, no masses, bowel sounds normal. Musculoskeletal: Neck: Neck is supple and non tender. Extremities have full range of motion and are non tender. Skin: No rashes or lesions. Neuro: Patient is alert and oriented 4, cranial nerves II through XII grossly intact. DIFFERENTIAL DIAGNOSIS: After history and physical exam differential diagnosis was considered for atypical migraine, stroke, [place], CHF exacerbation. Medical Decision Making Data Points Result Diagram: 06/11/18 1124 06/11/18 1124 Laboratory Hematology Test 06/11/18 11:24 Red Blood Count 4.66 M/uL (4.17-5.56) Mean Corpuscular Volume 94.8 fL (80.0-96.0) Mean Corpuscular Hemoglobin 31.5 pg (26.0-33.0) Mean Corpuscular Hemoglobin Concent 33.2 g/dL (32.0-36.0) Red Cell Distribution Width 14.4 % (11.5-14.5) Mean Platelet Volume 9.2 fL (7.2-11.1) Neutrophils (%) (Auto) 59.7 % (39.4-72.5) Lymphocytes (%) (Auto) 29.4 % (17.6-49.6) Monocytes (%) (Auto) 8.4 % (4.1-12.4) Eosinophils (%) (Auto) 1.9 % (0.4-6.7) Basophils (%) (Auto) 0.6 % (0.3-1.4) Nucleated RBC Relative Count (auto) 0.3 /100WBC Neutrophils # (Auto) 3.5 K/uL (2.0-7.4) Lymphocytes # (Auto) 1.7 K/uL (1.3-3.6) Monocytes # (Auto) 0.5 K/uL (0.3-1.0) Eosinophils # (Auto) 0.1 K/uL (0.0-0.5) Basophils # (Auto) 0.0 K/uL (0.0-0.1) Nucleated RBC Absolute Count (auto) 0.01 K/uL Erythrocyte Sedimentation Rate 2 mm/HOUR (0-30) Sodium Level 142 mmol/L (137-145) Potassium Level 3.5 mmol/L (3.5-5.0) Chloride Level 109 mmol/L (98-107) Carbon Dioxide Level 23 mmol/L (22-31) Blood Urea Nitrogen 14 mg/dl (7-18) Creatinine 0.90 mg/dl (0.52-1.04) Glomerular Filtration Rate Calc > 60.0 Random Glucose 110 mg/dl (75-110) Calcium Level 9.0 mg/dl (8.4-10.2) Total Bilirubin 0.4 mg/dl (0.2-1.3) Aspartate Amino Transf (AST/SGOT) 40 U/L (0-35) Alanine Aminotransferase (ALT/SGPT) 47 U/L (0-56) Alkaline Phosphatase 125 U/L (0-126) Troponin I < 0.012 ng/ml C-Reactive Protein 1.4 mg/dl (<1.0) B-Type Natriuretic Peptide 1650 pg/ml (0-100) Total Protein 6.7 g/dl (6.3-8.2) Albumin 3.8 g/dl (3.5-5.0) Chemistry Test 06/11/18 11:24 White Blood Count 5.9 k/uL (4.5-11.0) Red Blood Count 4.66 M/uL (4.17-5.56) Hemoglobin 14.6 g/dL (12.0-16.0) Hematocrit 44.2 % (34.0-47.0) Mean Corpuscular Volume 94.8 fL (80.0-96.0) Mean Corpuscular Hemoglobin 31.5 pg (26.0-33.0) Mean Corpuscular Hemoglobin Concent 33.2 g/dL (32.0-36.0) Red Cell Distribution Width 14.4 % (11.5-14.5) Platelet Count 258 K/uL (150-450) Mean Platelet Volume 9.2 fL (7.2-11.1) Neutrophils (%) (Auto) 59.7 % (39.4-72.5) Lymphocytes (%) (Auto) 29.4 % (17.6-49.6) Monocytes (%) (Auto) 8.4 % (4.1-12.4) Eosinophils (%) (Auto) 1.9 % (0.4-6.7) Basophils (%) (Auto) 0.6 % (0.3-1.4) Nucleated RBC Relative Count (auto) 0.3 /100WBC Neutrophils # (Auto) 3.5 K/uL (2.0-7.4) Lymphocytes # (Auto) 1.7 K/uL (1.3-3.6) Monocytes # (Auto) 0.5 K/uL (0.3-1.0) Eosinophils # (Auto) 0.1 K/uL (0.0-0.5) Basophils # (Auto) 0.0 K/uL (0.0-0.1) Nucleated RBC Absolute Count (auto) 0.01 K/uL Erythrocyte Sedimentation Rate 2 mm/HOUR (0-30) Glomerular Filtration Rate Calc > 60.0 Calcium Level 9.0 mg/dl (8.4-10.2) Total Bilirubin 0.4 mg/dl (0.2-1.3) Aspartate Amino Transf (AST/SGOT) 40 U/L (0-35) Alanine Aminotransferase (ALT/SGPT) 47 U/L (0-56) Alkaline Phosphatase 125 U/L (0-126) Troponin I < 0.012 ng/ml C-Reactive Protein 1.4 mg/dl (<1.0) B-Type Natriuretic Peptide 1650 pg/ml (0-100) Total Protein 6.7 g/dl (6.3-8.2) Albumin 3.8 g/dl (3.5-5.0) EKG/Imaging Imaging Technique: CHEST PA LAT HISTORY: chf COMPARISON: Chest radiographs 05/05/2018 Findings: The lungs are clear. No pleural effusion or pneumothorax. The cardiomediastinal silhouette is unchanged. Impression: 1. No acute cardiopulmonary process. 2. Cardiomegaly. Report Dictated By: Zackery Romo DO at 06/11/2018 12:06 PM Report E-Signed By: Zackery Romo DO at 06/11/2018 12:[address] OF THE BRAIN WITHOUT CONTRAST HISTORY: Headache with left-sided numbness. PROCEDURE: 3.0 mm contiguous axial sections were performed through the brain. Sagittal and coronal reformats were submitted. COMPARISON: MRA head August 19, 2009. FINDINGS: BRAIN: Brain and intracranial structures: There is no mass lesion, hemorrhage or acute infarct. Small area of hypoattenuation in the right basal ganglia region may correspond to an old infarct. Orbits (included portions): Normal. Scalp: Normal. Skull: Normal. Paranasal sinuses and mastoid air cells (included portions): Normal. IMPRESSION: No evidence of acute intracranial abnormality. One of the following dose optimization techniques was utilized in the performance of this exam: Automated exposure control; adjustment of the mA and/o r kV according to the patient's size; or use of an iterative reconstruction technique. Specific details can be referenced in the facility's radiology CT exam operational policy. Report Dictated By: Manny Mg MD at 06/11/2018 12:02 PM Report E-Signed By: Manny Mg MD at 06/11/2018 12:15 PM ED Course/Re-evaluation ED Course She was admitted exam room, history and physical were obtained. Differential diagnoses were considered. On examination lungs are clear, heart is regular, abdomen soft nontender. Neurologically patient is intact although she does have some decreased sensation. Patient is able to have equal soup mixer strength, and equal strength in all extremities. Patient had no facial droop. A CT scan of the head was done, a CBC, CMP, BNP, troponin, EKG. The results of lab work were unremarkable. Patient did have a normal rhythm with a new left anterior fascicular block when compared with previous EKG. CT scan of the head was negative, chest x-ray was normal except for cardiomegaly. BNP was 1650, exactly what it had been on June 02, the last time that it was checked. Patient did get 500 cc of normal saline, the latter to drink. We did give her Imitrex. That did help resolve her headache which developed while she was here and she did have decreased numbness sensation current time she was here. We will go ahead and discharge patient home at this time. She is taking with her normal medication. I would like her to follow-up with her field traffic investigator as scheduled. She is to follow-up with her primary care provider this next week. Patient and her verbalized understanding and agreement with plan. Decision to Disposition Date: Jun 11, 2018 Decision to Disposition Time: 14:02 Depart Departure Latest Vital Signs Vital Signs Date Time Temp Pulse Resp B/P (MAP) Pulse Ox O2 Delivery O2 Flow Rate FiO2 06/11/18 14:00 92/70 (77) 06/11/18 13:35 82 22 90 06/11/18 11:24 98.2 Room Air Impression: Primary Impression: Migraine Condition: Improved Disposition: HOME OR SELF-CARE Referrals: BETTINA MCINTOSH MD (PCP) Patient Instructions: Migraine Headache (ED) Additional Instructions: Continue with your daily wieghts. Follow up with your field traffic investigator as scheduled. Follow up with your primary care provider in the next week. Take your medications as prescribed. Return to the ER if condition worsens. Get plenty of rest. Problem Qualifiers Primary Impression: Migraine Migraine type: with aura Status migrainosus presence: without status migrainosus Intractability: not intractable Qualified Codes: G43.109 - Migraine with aura, not intractable, without status migrainosus JOHN BEAVER Jun 11, 2018 11:25
[2018-06-11 11:42] LABS: PLATELET COUNT, AUTOMATED 258 K/uL (150-450)
--- NOTE | 2018-06-11 12:10 | RADIOLOGY IMAGING REPORT ---
FACILITY: [facility] PATIENT NAME: Rayne Pederson : 1965 MR: [id number] V: [id number] EXAM DATE: ORDERING PHYSICIAN: JOHN BEAVER TECHNOLOGIST: Location: [facility] Patient: Rayne Pederson : 1965 Visit/Account:[id number] Date of Sevice: 06/11/2018 Technique: CHEST PA LAT HISTORY: chf COMPARISON: Chest radiographs 05/05/2018 Findings: The lungs are clear. No pleural effusion or pneumothorax. The cardiomediastinal silhouett e is unchanged. Impression: 1. No acute cardiopulmonary process. 2. Cardiomegaly. Report Dictated By: Zackery Romo DO at 06/11/2018 12:06 PM Report E-Signed By: Zackery Romo DO at 06/11/2018 12:07 PM WSN:[id number]
[2018-06-11] MEDS ORDERED: NS(*) 0.9% 500 ML BAG 500 ML IV ONE (12:15)
[2018-06-11] MEDS ORDERED: SUMAtriptan SUCC 25MG TAB PO ONE (12:15)
--- NOTE | 2018-06-11 12:18 | RADIOLOGY IMAGING REPORT ---
FACILITY: [facility] PATIENT NAME: Rayne Pederson : 1965 MR: [id number] V: [id number] EXAM DATE: ORDERING PHYSICIAN: JOHN BEAVER TECHNOLOGIST: Location: [facility] Patient: Rayne Pederson : 1965 Visit/Account:[id number] Date of Sevice: 06/11/2018 CT OF THE BRAIN WITHOUT CONTRAST HISTORY: Headache with left-sided numbness. PROCEDURE: 3.0 mm contiguous axial sections were performed through the brain. Sagittal and coronal r eformats were submitted. COMPARISON: MRA head August 19, 2009. FINDINGS: BRAIN: Brain and intracranial structures: There is no mass lesion, hemorrhage or acute infarct. Small area o f hypoattenuation in the right basal ganglia region may correspond to an old infarct. Orbits (included portions): Normal. Scalp: Normal. Skull: Normal. Paranasal sinuses and mastoid air cells (included portions): Normal. IMPRESSION: No evidence of acute intracranial abnormality. One of the following dose optimization techniques was utilized in the performance of this exam: Autom ated exposure control; adjustment of the mA and/or kV according to the patient's size; or use of an i terative reconstruction technique. Specific details can be referenced in the facility's radiology C T exam operational policy. Report Dictated By: Manny Mg MD at 06/11/2018 12:02 PM Report E-Signed By: Manny Mg MD at 06/11/2018 12:15 PM WSN:[id number]
--- NOTE | 2018-06-11 13:28 | EKG ---
FACILITY: [facility] PATIENT NAME: JORGE GLOVER : [id number] MR: [id number] V: [id number] EXAM DATE: ORDERING PHYSICIAN: JOHN BEAVER TECHNOLOGIST: MARITZA Test Reason : DIZZY Blood Pressure : / mmHG Vent. Rate : 086 BPM Atrial Rate : 086 BPM P-R Int : 174 ms QRS Dur : 098 ms QT Int : 392 ms P-R-T Axes : 024 -53 223 degrees QTc Int : 469 ms Normal sinus rhythm Left anterior fascicular block Septal infarct , age undetermined ST and T wave abnormality, consider lateral ischemia Abnormal ECG When compared with ECG of 02-JUN-2018 12:37, No significant change was found Confirmed by EMILIANO WHITTEN ([id number]) on 06/12/2018 2:08:48 AM Referred By: David BEAVER Confirmed By:EMILIANO WHITTEN
[2018-06-11 14:00] VITALS: BP 92/70
== END 2018-06-11 14:10 | disposition home or self-care (01) ==
LOC: ER 11:34
DX: G43.109 Migraine with aura, not intractable, without status migrainosus (principal); I44.4 Left anterior fascicular block; I50.9 Heart failure, unspecified; I51.7 Cardiomegaly
CPT/HCPCS: 70450; 71046; 83880; 84484; 85025; 85651; 86140; 93005; 96360; 96361; 99284; J7040; 82040; 82247; 82310; 82374; 82435; 82565; 82947; 84075; 84132; 84155; 84295; 84450; 84460; 84520

== ENCOUNTER 2018-06-16 11:46 | Outpatient (RCR) | payer OTHER ==
[~2018-06-16 11:46] MED LIST changes: -LEV125 PO
[2018-06-16] MEDS ORDERED: LIDOCAINE/SOD BICARB 8.4% SYR ID PRN (12:00)
[2018-06-16] MEDS ORDERED: DEXTROSE 5%(*) 100 ML BAG 100 ML IVPB PRN (12:00)
[2018-06-16] MEDS ORDERED: D5NS 500 ML BAG 500 ML IV PRN (12:00)
[2018-06-16] MEDS ORDERED: NS(*) 0.9% 100 ML BAG 100 ML IVPB PRN (12:00)
[2018-06-16] MEDS ORDERED: POTA20TA94 PO (14:08)
[2018-06-16] MEDS ORDERED: LEV125 PO (14:24)
[2018-06-26] MEDS ORDERED: APIX5TAB PO (16:00)
[2018-06-28] MEDS ORDERED: ASPI-1471 PO (17:16)
[2018-07-28] MEDS ORDERED: LEV125 PO (15:41)
[2018-08-17] MEDS ORDERED: SPIR25TA80 PO (16:47)
[2018-08-17] MEDS ORDERED: METO25TA93 PO (16:48)
[2018-08-17] MEDS ORDERED: FURO-45 PO (16:48)
[2018-08-17] MEDS ORDERED: ONDA4TAB9 PO (19:07)
== END 2018-09-04 16:35 | disposition home or self-care (01) ==
LOC: SPU 11:46
PROVIDERS: ATTEND Emergency Medicine
DX: E86.0 Dehydration (principal)
CPT/HCPCS: 96360; J7042

== ENCOUNTER → 2018-06-16 | Outpatient (CLI) | payer OTHER ==
[~2018-06-16] MED LIST changes: +LEV125 PO
[2018-06-16 11:45] LABS: PLATELET COUNT, AUTOMATED 254 K/uL (150-450)
[2018-06-16 12:10] LABS: LDL CHOLESTEROL 86 mg/dl
== END ==
LOC: LAB 11:14
PROVIDERS: ATTEND Emergency Medicine
DX: I42.9 Cardiomyopathy, unspecified (principal); R63.0 Anorexia; E87.6 Hypokalemia
CPT/HCPCS: 36415; 82040; 82247; 82310; 82374; 82378; 82435; 82465; 82565; 82607; 82947; 83718; 83735; 84075; 84132; 84155; 84295; 84443; 84450; 84460; 84478; 84520; 85025; 86140; 86301; 86304

== ENCOUNTER → 2018-06-23 | Outpatient (CLI) | payer OTHER ==
[~2018-06-23] MED LIST changes: +APIX5TAB PO; +LEV125 PO
--- NOTE | 2018-06-23 12:22 | RADIOLOGY IMAGING REPORT ---
FACILITY: [facility] PATIENT NAME: Rayne Pederson : 1965 MR: [id number] V: [id number] EXAM DATE: ORDERING PHYSICIAN: BETTINA MCINTOSH TECHNOLOGIST: Location: [facility] Patient: Rayne Pederson : 1965 Visit/Account:[id number] Date of Sevice: 06/23/2018 Transvaginal/transabdominal pelvic ultrasound. HISTORY: Elevated CA 125, increased fatigue, patient has IUD. COMPARISON: None. The uterus is retroverted measuring 7.4 cm in length. An echogenic structure consistent with an IUD is present within the endometrial cavity. The endometrial stripe is homogeneous measuring 4 mm in th ickness. No free fluid. The adnexal vessels are unremarkable. The ovaries are unremarkable though not well visualized. The right ovary measures 1.6 cm in length. The left ovary measures 1.9 cm in l ength. No abnormal adnexal masses or fluid collections are identified. Portions of the pelvis are o bscured by bowel gas. IMPRESSION: Retroverted uterus. Unremarkable IUD. Negative ovaries. COMMENT: Etiology of the elevated CA 125 is not determined by this means. Report Dictated By: Corey Paez MD at 06/23/2018 12:04 PM Report E-Signed By: Corey Paez MD at 06/23/2018 12:18 PM WSN:[email or web address]
== END ==
LOC: US 01:06
PROVIDERS: ATTEND Emergency Medicine
DX: Z97.5 Presence of (intrauterine) contraceptive device (principal); E87.6 Hypokalemia; R97.1 Elevated cancer antigen 125 [CA 125]
CPT/HCPCS: 36415; 76830; 76856; 82310; 82374; 82435; 82565; 82947; 84132; 84295; 84520

== ENCOUNTER → 2018-06-26 | Outpatient (CLI) | payer OTHER ==
[~2018-06-26] MED LIST changes: +ASPI-1471 PO
== END ==
LOC: MRI 01:02
PROVIDERS: ATTEND Emergency Medicine
DX: Z02.9 Encounter for administrative examinations, unspecified (principal)

== ENCOUNTER → 2018-06-26 | Outpatient (CLI) | payer OTHER ==
[~2018-06-26] MED LIST changes: +GADOBENATE 529MG/1ML 15ML VIAL IVP ONE
--- NOTE | 2018-06-26 13:44 | RADIOLOGY IMAGING REPORT ---
FACILITY: [facility] [place] PATIENT NAME: Rayne Pederson : 1965 MR: [id number] V: [id number] EXAM DATE: [id number] ORDERING PHYSICIAN: BETTINA MCINTOSH TECHNOLOGIST: Location: [facility] [place] Patient: Rayne Pederson : 1965 Visit/Account:[id number] Date of Sevice: 06/26/2018 Examination: MR brain without and with contrast History: Left-sided numbness Comparison: August 19, 2009 Technique: Multiplane MR imaging was performed through the brain without and with contrast. 11 cc IV multihance was administered. Findings: Diffusion: 4 mm diffusion bright signal within or just anterior to the right thalamus. 3 mm diffusion bright focus in the right parietal periventricular white matter. These foci appear low in signal on ADC map. Ventricles: Normal Midline shift: None Extraxial fluid: None Midline craniocervical structures: Normal Parenchyma: Less than 5 unchanged white matter high signal foci. Enhancement: 9 mm curvilinear new right occipital lobe cortical enhancement, axial image 10, coronal image 23. No apparent parenchymal abnormality in this area on the T2 or FLAIR acquisitions. Vascular flow voids: Normal Orbits and paranasal sinuses: Normal Other: Unchanged small anterior right temporal region arachnoid cyst. Impression: 1. 4 mm diffusion restriction in or just anterior to the right thalamus in keeping with a subacute in farct. 3 mm right parietal periventricular white matter subacute infarct. 2. Nonspecific 9 mm new right occipital lobe cortical enhancement is favored to represent a subacute infarct given the findings described in impression point #1. Follow-up MR in 2-3 months could be utilized to ensure resolution as needed. 3. Otherwise unremarkable brain MR without and with contrast. Report Dictated By: Andrew Velasquez MD at 06/26/2018 1:30 PM Report E-Signed By: Andrew Velasquez MD at 06/26/2018 1:41 PM WSN:[email or web address]
== END ==
LOC: US 01:03
PROVIDERS: ATTEND Internal Medicine Cardiovascular Disease
DX: I51.7 Cardiomegaly (principal); I34.0 Nonrheumatic mitral (valve) insufficiency; I31.3 Pericardial effusion (noninflammatory); I07.1 Rheumatic tricuspid insufficiency
CPT/HCPCS: 70553; A9577; C8929; Q9957

== ENCOUNTER → 2018-06-27 | Outpatient (CLI) | payer OTHER ==
[~2018-06-27] MED LIST changes: -GADOBENATE 529MG/1ML 15ML VIAL IVP ONE; +IOPAMIDOL 76% 150 ML INFUS BTL 150 ML ONE; +LIDOCAINE/SOD BICARB 8.4% SYR ID ONE
--- NOTE | 2018-06-27 09:54 | RADIOLOGY IMAGING REPORT ---
FACILITY: [facility] PATIENT NAME: Rayne Pederson : 1965 MR: [id number] V: [id number] EXAM DATE: ORDERING PHYSICIAN: BETTINA MCINTOSH TECHNOLOGIST: Location: [facility] Patient: Rayne Pederson : 1965 Visit/Account:[id number] Date of Sevice: 06/27/2018 CT ABDOMEN PELVIS W/ CON HISTORY:elevated CA 125 TECHNIQUE: CT abdomen and pelvis with intravenous contrast. Contiguous axial images of the abdomen and pelvis was performed from the lung bases to the symphysis pubis. One of the following dose optimization techniques was utilized in the performance of this exam: Autom ated exposure control; adjustment of the mA and/or kV according to the patient's size; or use of an i terative reconstruction technique. Specific details can be referenced in the facility's radiology C T exam operational policy. CONTRAST: 75 cc of Isovue-370 COMPARISON: CT chest 05/04/2018 FINDINGS: Visualized lung bases: Heart is enlarged in this patient with known cardiomyopathy. There is a smal l pericardial effusion and small bilateral pleural effusions possibly 3rd spacing from the cardiomyop athy. Hepatobiliary: Negative. Spleen: Negative. Adrenals: Negative. Kidneys/: Radiopaque IUD is noted in the uterus. Pancreas: There is fatty replacement of the majority of the pancreas. GI: Focal circumferential narrowing of the sigmoid colon image 104 could represent an apple core elva plasm. Recommend colonoscopy for further evaluation. No evidence for adjacent pathologic adenopathy or metastatic disease. No evidence for bowel obstruction. The appendix appears to be absent. Vessels/spaces/nodes: Subtle infiltration of the mesentery may represent 3rd spacing and fluid. Bones/soft tissues: Infiltration of subcutaneous tissues suggests 3rd spacing. Small sclerotic focu s left iliac bone has a benign appearance. IMPRESSION: 1. Focal circumferential narrowing of the sigmoid colon CT image 104 could represent an apple core n eoplasm. Recommend colonoscopy for further evaluation unless the patient has had recent colonoscopy. 2. Heart is enlarged in this patient with known cardiomyopathy. 3. Small pericardial effusion and small pleural effusions are noted. 4. Subcutaneous edema suggests 3rd space. Results were called to BETTINA MCINTOSH at 06/27/2018 9:49 AM. Report Dictated By: Héctor Bah MD at 06/27/2018 9:32 AM Report E-Signed By: Héctor Bah MD at 06/27/2018 9:50 AM WSN:[email or web address]
--- NOTE | 2018-06-27 18:13 | RADIOLOGY IMAGING REPORT ---
FACILITY: [facility] PATIENT NAME: Rayne Pederson : 1965 MR: [id number] V: [id number] EXAM DATE: ORDERING PHYSICIAN: BETTINA MCINTOSH TECHNOLOGIST: Location: [facility] [place] Patient: Rayne Pederson : 1965 Visit/Account:[id number] Date of Sevice: 06/27/2018 Carotid artery Doppler duplex ultrasound scan. HISTORY: Stroke. COMPARISON: None. A color flow Doppler duplex ultrasound scan with spectral analysis was performed on the carotid and v ertebral arteries bilaterally. Measurement of carotid stenosis is based on velocity parameters that correlate the residual internal carotid diameter with [place] Symptomatic Carotid Endarterecto my Trial (NASCET)- based stenosis levels. Right carotid peak systolic velocities are as follows: Superior right ICA - 64 cm/sec. Mid right ICA - 57 cm/sec. Proximal right ICA - 45 cm/sec. Right carotid bulb - 35 cm/sec. Superior right CCA - 57 cm/sec. Mid right CCA- 56 cm/sec. Inferior right CCA- 42 cm/sec. Proximal right ECA- 43 cm/sec. Mid right vertebral- 20 cm/sec. Right ICA/CCA ratio- 1.1 ( normal < 1.5 ). Antegrade right vertebral artery flow- YES. Left carotid peak systolic velocities are as follows: Superior left ICA - 83 cm/sec. Mid left ICA- 54 cm/sec. Proximal left ICA- 37 cm/sec. Left carotid bulb- 55 cm/sec. Superior left CCA- 51 cm/sec. Mid left CCA- 56 cm/sec. Inferior left CCA- 64 cm/sec. Proximal left ECA- 31 cm/sec. Mid left vertebral- 35 cm/sec. Left ICA/CCA ratio- 1.5 ( normal < 1.5). Antegrade left vertebral artery flow- YES. Minimal intimal thickening is present in the carotid bulbs and proximal internal carotid arteries gurmeet aterally. IMPRESSION: Negative for hemodynamically significant focal carotid stenosis. Report Dictated By: Corey Paez MD at 06/27/2018 6:06 PM Report E-Signed By: Corey Paez MD at 06/27/2018 6:08 PM WSN:[email or web address]
--- NOTE | 2018-06-28 17:17 | RADIOLOGY IMAGING REPORT ---
FACILITY: [facility] PATIENT NAME: JORGE GLOVER : [id number] MR: [id number] V: [id number] EXAM DATE: [id number] ORDERING PHYSICIAN: BETTINA MCINTOSH TECHNOLOGIST: Lynette Quinones PROCEDURE:BILATERAL DIGITAL SCREENING MAMMOGRAM WITH CAD ASSISTED INTERPRETATION & 3D TOMOSYNTHESIS COMPARISON:Prior mammograms 03/07/2015, 03/14/2013. INDICATIONS:Screening FINDINGS: Breast density: The breasts are extremely dense which limits sensivity. There are no mammographic findings suspicious for malignancy. There are no mass lesions, architectural distortions, or any clustering of suspicious microcalcifications. When compared to the previous study there has been no interval change other than a slight decrease in the degree of glandular density. DIAGNOSTIC CATEGORY 1--NEGATIVE. RECOMMENDATIONS: ROUTINE MAMMOGRAM AND CLINICAL EVALUATION IN 1 YR. IMPRESSION: BIRADS 1: Negative. Dictated by: Rufus Brown M.D. on 06/28/2018 at 9:10 Transcribed by: REYES on 06/28/2018 at 9:54 Approved by: Rufus Brown M.D. on 06/28/2018 at 17:16 [facility]
== END ==
LOC: MAMO 00:24
PROVIDERS: ATTEND Emergency Medicine
DX: I51.7 Cardiomegaly (principal); J90 Pleural effusion, not elsewhere classified
CPT/HCPCS: 74177; 93880; Q9967; 77063; 77067

== ENCOUNTER 2018-07-13 00:29 | Day surgery (SDC) | payer OTHER ==
[2018-07-13] VITALS (12 sets, daily range): BP systolic 88–108; BP diastolic 52–69
[~2018-07-13] VITALS: Ht 167.6 cm; Wt 50.8 kg
[~2018-07-13 00:29] MED LIST changes: -IOPAMIDOL 76% 150 ML INFUS BTL 150 ML ONE; -LIDOCAINE/SOD BICARB 8.4% SYR ID ONE
[2018-07-13] MEDS ORDERED: LIDOCAINE/SOD BICARB 8.4% SYR ID ONE (06:45)
[2018-07-13] MEDS ORDERED: NORMOSOL R SOLN(*) 1000 ML BAG 1,000 ML IV PRN (06:45)
[2018-07-13] MEDS ORDERED: MIDAZOLAM 2 MG/2 ML VIAL ONE (07:19)
[2018-07-13] MEDS ORDERED: fentaNYL CITR 100 MCG/2 ML AMP ONE (07:20)
[2018-07-13] MEDS ORDERED: DEXAMETHASONE SOD PHOS 10MG/ML ONE (07:21)
[2018-07-13] MEDS ORDERED: ONDANSETRON 4 MG/2 ML VIAL ONE (07:21)
--- NOTE | 2018-07-13 08:54 | Short(Outpt) Discharge Summary ---
Discharge Summary Reason for Hosp/Final Diag: (1) Colon abnormality Status: Chronic Hospital Course & Plan: Colonoscopy with polypectomy x3 completed without problems. (2) Lymphocytic colitis Status: Chronic (3) Celiac disease Status: Chronic Departure Discharge to: Home, Self Care Discharge Instructions Home Meds Active Scripts Apixaban (ELIQUIS) 5 Mg Tablet, 5 MG PO BID, #60 TAB 11 Refills Prov:BETTINA MCINTOSH MD 06/26/18 Levothyroxine Sodium (LEVOTHYROXINE SODIUM) 0.125 Mg Tab, 0.125 MG PO QDAY, #45 TAB 0 Refills Prov:BETTINA MCINTOSH MD 06/16/18 Potassium Chloride (POTASSIUM CHLORIDE) 20 Meq Tab.er.prt, 20 MEQ PO DAILY for 30 Days, #15 TAB Prov:BETTINA MCINTOSH MD 06/16/18 Metoprolol Succinate (METOPROLOL SUCCINATE) 25 Mg Tab.er.24h, 12.5 MG PO ONCE for 30 Days, #30 TAB Take one half tablet daily. Prov:MATTEO CURTIS DO 05/05/18 Reported Medications Aspirin (ASPIR 81) 81 Mg Tablet.dr, 81 MG PO QDAY, TAB 06/28/18 [amberen] No Conflict Check, 1 CAP PO PRN 06/02/18 Acetaminophen (TYLENOL) 325 Mg Tablet, 325 MG PO PRN, TAB 06/02/18 Lisinopril (LISINOPRIL) 2.5 Mg Tablet, 2.5 MG PO BID 06/02/18 Budesonide (BUDESONIDE EC) 3 Mg Capdr...er, 3 MG PO QDAY START WITH 3 CAPSULES PO QD FOR 2 MONTHS, THEN 2 CAPSULES PO QD FOR 1 MONTH, THEN 1 CAPSULE PO QD FOR 1 MONTH 05/04/18 Venlafaxine Hcl (VENLAFAXINE HCL ER) 75 Mg Cap.er.24h, 225 MG PO QDAY TAKE ONE 150 MG CAPSULE + ONE 75 MG CAPSULE = 225 MG DAILY 05/04/18 Topiramate (TOPIRAMATE) 100 Mg Tablet, 50 MG PO HS FOR MIGRAINE PREVENTION 05/04/18 Venlafaxine Hcl (VENLAFAXINE HCL ER) 150 Mg Cap.er.24h, 225 MG PO QDAY 05/04/18 Naratriptan Hcl (NARATRIPTAN HCL) 2.5 Mg Tablet, 2.5 MG PO TAKE ONE TABLET BY MOUTH AT ONSET OF MIGRAINE, MAY TAKE ONE ADDITIONAL TABLET 4 HOURS LATER NEEDED 05/04/18 Sumatriptan Succinate (SUMATRIPTAN SUCCINATE) 100 Mg Tablet, 100 MG PO QDAY PRN for MIGRAINE MAX 1 TABLETS IN 24 HOURS 05/04/18 Erenumab-Aooe (Aimovig Autoinjector (2 Pack)) 70 Mg/Ml Auto.injct, 2 ML SUBQ Q30D FOR MIGRAINE PREVENTION 05/04/18 Fluticasone Prop 50 Mcg Ns (FLONASE 50 MCG NS) 16 Gm [place].susp, 2 SPRAYS JUANJO QDAY 05/04/18 Diet: Regular Activity: As Tolerated Special Instructions: Your colonoscopy was completed without any problems and your prep was excellent (Good Job!!). I didn't find any cancer in your entire colon! I found 3 fairly small polyps, none were related to the CT finding. They were all removed and sent to pathology. I clipped 2 of the biopsy sites to prevent bleeding since you'll be restarting your Eliquis soon. I recommend restarting Eliquis on 07/16/18. I'll call you in the next week or two to let you know what the polyps are and when your next colonoscopy should be, likely in 3 or 5 years, depending on pathology results. I really hope that you start to feel better and stronger soon!! EMILIANO ALDANA MD Jul 13, 2018 08:54
--- NOTE | 2018-07-13 09:37 | OPERATIVE REPORT 1 ---
EVENT DATE: July 13, 2018 SURGEON: Ac Muñoz MD ANESTHESIOLOGIST: Tyler Chau MD ANESTHESIA: TIVA. PREOPERATIVE DIAGNOSIS 1. Sigmoid apple-core lesion seen on CT scan. 2. History of microscopic colitis. 3. History of Celiac disease. 4. Chronic diarrhea. POSTOPERATIVE DIAGNOSIS 1. Sigmoid apple-core lesion seen on CT scan. 2. History of microscopic colitis. 3. History of Celiac disease. 4. Chronic diarrhea. 5. Colon polyps x3. PROCEDURE PERFORMED Colonoscopy with snare polypectomy. COMPLICATIONS None. CONDITION Stable. ESTIMATED BLOOD LOSS None. SPECIMENS 1. Transverse colon polyp. 2. Descending colon polyp. 3. Sigmoid colon polyp. FINDINGS The patient had excellent bowel prep. Withdrawal time was 26 minutes. The sigmoid colon, other than the small polyp which was not associated with the CT lesion, was unremarkable and no apple-core lesion, neoplasm, stricture, etc. was found. I suspect the lesion on CT was a spasm at the time of the CT scan giving the impression of an apple-core lesion. INDICATIONS This is a 53-year old female who has a long history of Celiac disease as well as microscopic colitis who has had quite an extensive recent medical history including what is thought to be bilateral cardiomyopathy and was otherwise previously fairly health 53-year old and a recent coronary angiogram revealed no coronary stenotic lesions but her ejection fraction was of 25%. Because she has been feeling poorly, her primary care provider had ordered some tumor markers including a CA-125 and that was elevated so this prompted a pelvic ultrasound as well as a CT scan and then the CT revealed this apple-core lesion in her sigmoid colon. She was referred to me for colonoscopy to evaluate this. DESCRIPTION OF PROCEDURE The patient was brought into the operating room and placed in the left lateral decubitus position on the procedure table and IV anesthesia was administered. Digital rectal exam was completed, which was unremarkable. I then obtained the colonoscope, lubricated and inserted into the rectum through the anus and I advanced it with some difficulty to the cecum. Her colon was very spasmodic and I would often have to stop and wait for it to relax or get around to her corners to advance it but ultimately was able to make it all the way to the cecum with no other difficulties. I then slowly withdrew the scope, with a look to all mucosa for any abnormalities. I found a flat 1 cm polyp in the transverse colon, which I removed with snare, a smaller approximate 5 mm sessile polyp in the descending colon and a little bit bigger 8 mm slightly more raised but still sessile polyp in the sigmoid polyp. These were all removed with snare. The two polyps in the descending and sigmoid colon, the polyp removal sites were bleeding so these were clipped with an endo clip. They were completely hemostatic at the end of this case. I then paid special attention to the sigmoid colon, looking for any suspicious lesions other than the polyp and there were no other lesions or stenotic areas or neoplastic appearing lesions found. I retroflexed the scope in the rectum to look at the distal rectum and anal canal and this was unremarkable. I then straightened the scope out and desufflated the rectum and distal sigmoid and then removed the colonoscope from the patient's body. She was then brought to the recovery room in good condition, having tolerated the procedure without any apparent problems. The prep was excellent. Withdrawal time was 26 minutes. TEOD
== END 2018-07-13 13:35 | disposition home or self-care (01) ==
LOC: OR 00:29
PROVIDERS: ATTEND Surgery
DX: D12.4 Benign neoplasm of descending colon (principal); D12.5 Benign neoplasm of sigmoid colon; D12.3 Benign neoplasm of transverse colon
CPT/HCPCS: 00811; 45385; 88305; J1100; J2250; J2405; J3010

== ENCOUNTER 2018-08-17 16:38 | Emergency (ER) | payer OTHER ==
[2018-08-17] MEDS ORDERED: SPIR25TA80 PO (16:47)
[2018-08-17] MEDS ORDERED: METO25TA93 PO (16:48)
[2018-08-17] MEDS ORDERED: FURO-45 PO (16:48)
--- NOTE | 2018-08-17 16:48 | ER Report ---
History and Physical Time Seen By MD: 16:48 HPI/ROS CHIEF COMPLAINT: Bilateral lower extremity edema HISTORY OF PRESENT ILLNESS: 53-year-old female patient presents to emergency room with complaint of bilateral lower extremity edema. Patient states that she has a history of congestive heart failure, secondary to a cardiomyopathy. Patient states that she has been taking her medication as prescribed. She states that over the last couple days she's had significant swelling as well as pain to the right foot. Patient states that she is having pain when she is ambulating. She denies any fevers, chills, nausea, vomiting or diarrhea. Patient does have a cough. She denies any sputum production. She states that she had a MRI done of the heart one week ago. She was informed of a pulmonary infiltrate. She denies any medications. She states she is not having prescriptions in regards to the infiltrate. She states that she was having a cough when she had the test done, however she states that that has improved. REVIEW OF SYSTEMS: Respiratory: Patient has slight cough this time. Cardiovascular: No chest pain, no palpitations. Gastrointestinal: No vomiting, no abdominal pain. Musculoskeletal: No back pain. Allergies: Coded Allergies: Penicillins (Verified Allergy, Intermediate, rash, 06/11/18) Quinolones (Verified Allergy, Intermediate, tendonitis, 06/11/18) cat dander (Verified Allergy, Mild, Hives, 06/11/18) gluten (Verified Allergy, Unknown, 06/11/18) Celiac's disease Uncoded Allergies: pollen (Adverse Reaction, Mild, sneeze, 05/04/18) Home Meds Active Scripts Ondansetron 4 Mg Odt (ONDANSETRON 4 MG ODT) 4 Mg Tab.rapdis, 4 MG PO Q6H PRN for NAUSEA/VOMITING, #20 TAB 1 Refill Prov:JOHN BEAVER 08/17/18 Levothyroxine Sodium (LEVOTHYROXINE SODIUM) 0.125 Mg Tab, 0.125 MG PO QDAY, #90 TAB 3 Refills Prov:BETTINA MCINTOSH MD 07/28/18 Apixaban (ELIQUIS) 5 Mg Tablet, 5 MG PO BID, #60 TAB 11 Refills Prov:BETTINA MCINTOSH MD 06/26/18 Reported Medications Furosemide (FUROSEMIDE) 20 Mg Tablet, 1 TAB PO PRN, TAB 08/17/18 Metoprolol Tartrate (METOPROLOL TARTRATE) 25 Mg Tablet, 1 TAB PO BID, TAB 08/17/18 Spironolactone (SPIRONOLACTONE) 25 Mg Tablet, 25 MG PO, TAB 08/17/18 Aspirin (ASPIR 81) 81 Mg Tablet.dr, 81 MG PO QDAY, TAB 06/28/18 Acetaminophen (TYLENOL) 325 Mg Tablet, 325 MG PO PRN, TAB 06/02/18 Lisinopril (LISINOPRIL) 2.5 Mg Tablet, 2.5 MG PO BID 06/02/18 Budesonide (BUDESONIDE EC) 3 Mg Capdr...er, 3 MG PO QDAY START WITH 3 CAPSULES PO QD FOR 2 MONTHS, THEN 2 CAPSULES PO QD FOR 1 MONTH, THEN 1 CAPSULE PO QD FOR 1 MONTH 05/04/18 Venlafaxine Hcl (VENLAFAXINE HCL ER) 75 Mg Cap.er.24h, 225 MG PO QDAY TAKE ONE 150 MG CAPSULE + ONE 75 MG CAPSULE = 225 MG DAILY 05/04/18 Topiramate (TOPIRAMATE) 100 Mg Tablet, 50 MG PO HS FOR MIGRAINE PREVENTION 05/04/18 Venlafaxine Hcl (VENLAFAXINE HCL ER) 150 Mg Cap.er.24h, 225 MG PO QDAY 05/04/18 Erenumab-Aooe (Aimovig Autoinjector (2 Pack)) 70 Mg/Ml Auto.injct, 2 ML SUBQ Q30D FOR MIGRAINE PREVENTION 05/04/18 Fluticasone Prop 50 Mcg Ns (FLONASE 50 MCG NS) 16 Gm [place].susp, 2 SPRAYS JUANJO QDAY 05/04/18 Discontinued Reported Medications [amberen] No Conflict Check, 1 CAP PO PRN 06/02/18 Naratriptan Hcl (NARATRIPTAN HCL) 2.5 Mg Tablet, 2.5 MG PO TAKE ONE TABLET BY MOUTH AT ONSET OF MIGRAINE, MAY TAKE ONE ADDITIONAL TABLET 4 HOURS LATER NEEDED 05/04/18 Sumatriptan Succinate (SUMATRIPTAN SUCCINATE) 100 Mg Tablet, 100 MG PO QDAY PRN for MIGRAINE MAX 1 TABLETS IN 24 HOURS 05/04/18 Discontinued Scripts Potassium Chloride (POTASSIUM CHLORIDE) 20 Meq Tab.er.prt, 20 MEQ PO DAILY for 30 Days, #15 TAB Prov:BETTINA MCINTOSH MD 06/16/18 Metoprolol Succinate (METOPROLOL SUCCINATE) 25 Mg Tab.er.24h, 12.5 MG PO ONCE for 30 Days, #30 TAB Take one half tablet daily. Prov:MATTEO CURTIS DO 05/05/18 Past Medical/Surgical History Patient has a past medical history CVA, migraines, pericarditis, subglottic stenosis, lymphocytic colitis, celiac disease, hypothyroidism, depression. Patient has surgical history of uterine suspension, D&C 3, subglottic dilation, knee surgery, LASIK eye surgery, endoscopy, colonoscopy. Reviewed Nurses Notes: Yes Hx Smoking: No Smoking Status: Never Smoker Exposure to Second Hand Smoke?: No Hx Substance Use Disorder: No Hx Alcohol Use: No Constitutional Vital Sign - Last 24 Hours 08/17/18 08/17/18 08/17/18 08/17/18 16:43 17:00 17:30 18:00 Temp 97.7 Pulse 87 82 89 83 Resp 16 23 17 18 B/P (MAP) 96/59 92/64 (73) 98/--- (54) 100/75 (83) Pulse Ox 97 95 O2 Delivery Room Air 08/17/18 18:30 Pulse 83 Resp 14 B/P (MAP) 118/69 (85) Physical Exam General Appearance: The patient is alert, has no immediate need for airway protection and no current signs of toxicity. Respiratory: Chest is non tender, lungs are clear to auscultation. Cardiac: regular rate and rhythm. Patient does have bilateral lower extremity edema, worse on the right versus left. Gastrointestinal: Abdomen is soft and non tender, no masses, bowel sounds normal. Musculoskeletal: Neck: Neck is supple and non tender. Extremities have full range of motion and are non tender. Skin: No rashes or lesions. DIFFERENTIAL DIAGNOSIS: After history and physical exam differential diagnosis was considered for DVT, respirations CHF, [place], pneumonia. Medical Decision Making Data Points Result Diagram: 08/17/18 1654 08/17/18 1654 Laboratory Hematology Test 08/17/18 16:54 08/17/18 18:26 Red Blood Count 5.15 M/uL (4.17-5.56) Mean Corpuscular Volume 93.2 fL (80.0-96.0) Mean Corpuscular Hemoglobin 29.9 pg (26.0-33.0) Mean Corpuscular Hemoglobin Concent 32.1 g/dL (32.0-36.0) Red Cell Distribution Width 18.8 % (11.5-14.5) Mean Platelet Volume 9.7 fL (7.2-11.1) Neutrophils (%) (Auto) 57.1 % (39.4-72.5) Lymphocytes (%) (Auto) 27.2 % (17.6-49.6) Monocytes (%) (Auto) 6.2 % (4.1-12.4) Eosinophils (%) (Auto) 9.2 % (0.4-6.7) Basophils (%) (Auto) 0.3 % (0.3-1.4) Nucleated RBC Relative Count (auto) 0.3 /100WBC Neutrophils # (Auto) 4.2 K/uL (2.0-7.4) Lymphocytes # (Auto) 2.0 K/uL (1.3-3.6) Monocytes # (Auto) 0.5 K/uL (0.3-1.0) Eosinophils # (Auto) 0.7 K/uL (0.0-0.5) Basophils # (Auto) 0.0 K/uL (0.0-0.1) Nucleated RBC Absolute Count (auto) 0.03 K/uL Prothrombin Time 18.4 seconds (12.0-14.4) Prothromb Time International Ratio 1.52 Activated Partial Thromboplast Time 38 seconds (23-35) Sodium Level 139 mmol/L (137-145) Potassium Level 3.3 mmol/L (3.5-5.0) Chloride Level 103 mmol/L (98-107) Carbon Dioxide Level 23 mmol/L (22-31) Blood Urea Nitrogen 16 mg/dl (7-18) Creatinine 1.00 mg/dl (0.52-1.04) Glomerular Filtration Rate Calc 57.6 Random Glucose 120 mg/dl (75-110) Calcium Level 9.1 mg/dl (8.4-10.2) Total Bilirubin 0.8 mg/dl (0.2-1.3) Aspartate Amino Transf (AST/SGOT) 71 U/L (0-35) Alanine Aminotransferase (ALT/SGPT) 114 U/L (0-56) Alkaline Phosphatase 116 U/L (0-126) Troponin I < 0.012 ng/ml B-Type Natriuretic Peptide 1830 pg/ml (0-100) Total Protein 7.3 g/dl (6.3-8.2) Albumin 4.2 g/dl (3.5-5.0) Urine Color Krista Urine Clarity Slightly-cloudy Urine pH 5.0 pH (4.8-9.5) Urine Specific [place] 1.018 Urine Protein Negative mg/dL (NEGATIVE) Urine Glucose (UA) Negative mg/dL (NEGATIVE) Urine Ketones Negative mg/dL (NEGATIVE) Urine Blood Negative (NEGATIVE) Urine Nitrite Negative (NEGATIVE) Urine Bilirubin Negative (NEGATIVE) Urine Urobilinogen 4.0 mg/dL (0.2-1.9) Urine Leukocyte Esterase Negative (NEGATIVE) Urine RBC 1 /HPF (0-2/HPF) Urine WBC 4 /HPF (0-5/HPF) Urine Squamous Epithelial Cells None /LPF (</=FEW) Urine Bacteria Negative /HPF (NONE-FEW) Urine Mucus Few /HPF (NONE-FEW) Chemistry Test 08/17/18 16:54 08/17/18 18:26 White Blood Count 7.4 k/uL (4.5-11.0) Red Blood Count 5.15 M/uL (4.17-5.56) Hemoglobin 15.4 g/dL (12.0-16.0) Hematocrit 48.0 % (34.0-47.0) Mean Corpuscular Volume 93.2 fL (80.0-96.0) Mean Corpuscular Hemoglobin 29.9 pg (26.0-33.0) Mean Corpuscular Hemoglobin Concent 32.1 g/dL (32.0-36.0) Red Cell Distribution Width 18.8 % (11.5-14.5) Platelet Count 261 K/uL (150-450) Mean Platelet Volume 9.7 fL (7.2-11.1) Neutrophils (%) (Auto) 57.1 % (39.4-72.5) Lymphocytes (%) (Auto) 27.2 % (17.6-49.6) Monocytes (%) (Auto) 6.2 % (4.1-12.4) Eosinophils (%) (Auto) 9.2 % (0.4-6.7) Basophils (%) (Auto) 0.3 % (0.3-1.4) Nucleated RBC Relative Count (auto) 0.3 /100WBC Neutrophils # (Auto) 4.2 K/uL (2.0-7.4) Lymphocytes # (Auto) 2.0 K/uL (1.3-3.6) Monocytes # (Auto) 0.5 K/uL (0.3-1.0) Eosinophils # (Auto) 0.7 K/uL (0.0-0.5) Basophils # (Auto) 0.0 K/uL (0.0-0.1) Nucleated RBC Absolute Count (auto) 0.03 K/uL Prothrombin Time 18.4 seconds (12.0-14.4) Prothromb Time International Ratio 1.52 Activated Partial Thromboplast Time 38 seconds (23-35) Glomerular Filtration Rate Calc 57.6 Calcium Level 9.1 mg/dl (8.4-10.2) Total Bilirubin 0.8 mg/dl (0.2-1.3) Aspartate Amino Transf (AST/SGOT) 71 U/L (0-35) Alanine Aminotransferase (ALT/SGPT) 114 U/L (0-56) Alkaline Phosphatase 116 U/L (0-126) Troponin I < 0.012 ng/ml B-Type Natriuretic Peptide 1830 pg/ml (0-100) Total Protein 7.3 g/dl (6.3-8.2) Albumin 4.2 g/dl (3.5-5.0) Urine Color Krista Urine Clarity Slightly-cloudy Urine pH 5.0 pH (4.8-9.5) Urine Specific [place] 1.018 Urine Protein Negative mg/dL (NEGATIVE) Urine Glucose (UA) Negative mg/dL (NEGATIVE) Urine Ketones Negative mg/dL (NEGATIVE) Urine Blood Negative (NEGATIVE) Urine Nitrite Negative (NEGATIVE) Urine Bilirubin Negative (NEGATIVE) Urine Urobilinogen 4.0 mg/dL (0.2-1.9) Urine Leukocyte Esterase Negative (NEGATIVE) Urine RBC 1 /HPF (0-2/HPF) Urine WBC 4 /HPF (0-5/HPF) Urine Squamous Epithelial Cells None /LPF (</=FEW) Urine Bacteria Negative /HPF (NONE-FEW) Urine Mucus Few /HPF (NONE-FEW) Coagulation Test 08/17/18 16:54 Prothrombin Time 18.4 seconds Prothromb Time International Ratio 1.52 Activated Partial Thromboplast Time 38 seconds Urinalysis Test 08/17/18 18:26 Urine Color Krista Urine Clarity Slightly-cloudy Urine pH 5.0 pH (4.8-9.5) Urine Specific [place] 1.018 Urine Protein Negative mg/dL (NEGATIVE) Urine Glucose (UA) Negative mg/dL (NEGATIVE) Urine Ketones Negative mg/dL (NEGATIVE) Urine Blood Negative (NEGATIVE) Urine Nitrite Negative (NEGATIVE) Urine Bilirubin Negative (NEGATIVE) Urine Urobilinogen 4.0 mg/dL (0.2-1.9) Urine Leukocyte Esterase Negative (NEGATIVE) Urine RBC 1 /HPF (0-2/HPF) Urine WBC 4 /HPF (0-5/HPF) Urine Squamous Epithelial Cells None /LPF (</=FEW) Urine Bacteria Negative /HPF (NONE-FEW) Urine Mucus Few /HPF (NONE-FEW) EKG/Imaging EKG Interpretation 12 lead EKG: Rhythm: normal sinus rhythm [place]: Left axis deviation QRS: normal ST segments: normal No significant change noted when compared with June 11, 2018 Imaging Exam type: CHEST PA LAT History: Comparison: June 11, 2018. Findings: Cardiac silhouette is markedly enlarged although unchanged. There is no ev idence of a acute appearing infiltrates pleural effusions or pulmonary edema. No evidence of a pneumothorax or pneumomediastinum. The trachea is in midline. IMPRESSION: 1. Marked cardiomegaly although appears stable No evidence of acute pulmonary infiltrates or pulmonary edema Report Dictated By: Becky German MD at 08/17/2018 5:16 PM Report E-Signed By: Becky German MD at 08/17/2018 5:18 PM EXAMINATION: Bilateral lower extremity duplex venous ultrasound COMPARISON: None Available HISTORY: swelling to bilateral lower extremity FINDINGS: Standard bilateral lower extremity Doppler ultrasound with color flow and spectral analysis is performed. The bilateral common femoral, femoral, and popliteal veins are widely patent and compress appropriately. The visualized calf veins and the proximal greater saphenous vein are patent. No popliteal fluid collection. IMPRESSION: No evidence of deep venous thrombosis within either lower extremity. Report Dictated By: Mesfin Borjas MD at 08/17/2018 6:24 PM Report E-Signed By: Mesfin Borjas MD at 08/17/2018 6:26 PM ED Course/Re-evaluation ED Course Patient was admitted to an exam room, history and physical were obtained. Differential diagnoses were considered. On examination lungs are clear, heart is regular, abdomen is soft and nontender. Patient does have edema to the lower extremity, right foot appears to be 2+ with no pitting, left foot is 1+. An IV was started, CBC, CMP, urinalysis, BNP, troponin, EKG, chest x-ray, bilateral lower extremity venous Dopplers. The labs were unremarkable except for the BNP was 1850, that is up from 1652 months ago. Patient did have a BNP of 3000 at her congestive heart failure physicians office last week. Chest x-ray showed no acute cardiopulmonary processes, patient did not have an elevated white count, kidney function was good. Patient had a potassium of 3.3. I discussed the results with the patient and her family. I did call and spoke with Dr. Phan, CHF physician at [facility]. His recommendation was to have her increase her spironolactone to 50 mg, follow-up next week in the clinic. He also felt that if the patient felt that she was not able to tolerate going home that she could be transferred down there for further workup and diuresis. He felt the next step for the patient was likely a heart transplant which looking at the discharge instructions is apparently the direction that they're going. I discussed this with the patient who verbalized understanding and agreement with plan. She felt that she would prefer to go home that she does not need to be transferred this point time. Decision to Disposition Date: August 17, 2018 Decision to Disposition Time: 19:06 Depart Departure Latest Vital Signs Vital Signs Date Time Temp Pulse Resp B/P (MAP) Pulse Ox O2 Delivery O2 Flow Rate FiO2 08/17/18 18:30 83 14 118/69 (85) 08/17/18 18:00 95 08/17/18 16:43 97.7 Room Air Impression: Primary Impression: Congestive heart failure (CHF) Condition: Improved Disposition: HOME OR SELF-CARE Referrals: BETTINA MCINTOSH MD (PCP) New Scripts Ondansetron 4 Mg Odt (ONDANSETRON 4 MG ODT) 4 Mg Tab.rapdis 4 MG PO Q6H PRN for NAUSEA/VOMITING, #20 TAB 1 Refill Prov: JOHN BEAVER 08/17/18 Patient Instructions: Heart Failure (ED) Additional Instructions: Continue to monitor your weight and your fluid intake. Increase spironolactone to 50mg daily. Return to the ER if condition worsens. Follow up with your heart failure physician in the next week, I expect that they will call and make that appointment with you. If you become more weak, difficulty going to the bathroom, chest pain or shor tness of breath return to the ER. Problem Qualifiers Primary Impression: Congestive heart failure (CHF) Heart failure type: unspecified Heart failure chronicity: chronic Qualified Codes: I50.9 - Heart failure, unspecified JOHN BEAVER August 17, 2018 16:48
--- NOTE | 2018-08-17 17:09 | EKG ---
FACILITY: [facility] [place] PATIENT NAME: JORGE GLOVER : [id number] MR: [id number] V: [id number] EXAM DATE: ORDERING PHYSICIAN: JOHN BEAVER TECHNOLOGIST: CHET Karimi Reason : SOB Blood Pressure : / mmHG Vent. Rate : 083 BPM Atrial Rate : 083 BPM P-R Int : 166 ms QRS Dur : 102 ms QT Int : 414 ms P-R-T Axes : 007 -43 098 degrees QTc Int : 486 ms Normal sinus rhythm Left axis deviation Anterolateral infarct , age undetermined Abnormal ECG No previous ECGs available Confirmed by EMILIANO WHITTEN ([id number]) on 08/18/2018 6:18:49 AM Referred By: SARANYA Confirmed By:EMILIANO WHITTEN
--- NOTE | 2018-08-17 17:22 | RADIOLOGY IMAGING REPORT ---
FACILITY: [facility] PATIENT NAME: Rayne Pederson : 1965 MR: [id number] V: [id number] EXAM DATE: ORDERING PHYSICIAN: JOHN BEAVER TECHNOLOGIST: Location: [facility] [place] Patient: Rayne Pederson : 1965 Visit/Account:[id number] Date of Sevice: 08/17/2018 Exam type: CHEST PA LAT History: Comparison: June 11, 2018. Findings: Cardiac silhouette is markedly enlarged although unchanged. There is no evidence of a acute appearin g infiltrates pleural effusions or pulmonary edema. No evidence of a pneumothorax or pneumomediastin um. The trachea is in midline. IMPRESSION: 1. Marked cardiomegaly although appears stable No evidence of acute pulmonary infiltrates or pulmonary edema Report Dictated By: Becky German MD at 08/17/2018 5:16 PM Report E-Signed By: Becky German MD at 08/17/2018 5:18 PM WSN:[email or web address]
[2018-08-17 17:25] LABS: PLATELET COUNT, AUTOMATED 261 K/uL (150-450)
[2018-08-17 17:29] LABS: INR 1.52
--- NOTE | 2018-08-17 18:29 | RADIOLOGY IMAGING REPORT ---
FACILITY: [facility] - [place], [place] PATIENT NAME: Rayne Pederson : 1965 MR: [id number] V: [id number] EXAM DATE: ORDERING PHYSICIAN: JOHN BEAVER TECHNOLOGIST: Location: Patient: Rayne Pederson : 1965 Visit/Account:[id number] Date of Sevice: 08/17/2018 EXAMINATION: Bilateral lower extremity duplex venous ultrasound COMPARISON: None Available HISTORY: swelling to bilateral lower extremity FINDINGS: Standard bilateral lower extremity Doppler ultrasound with color flow and spectral analysis is performed. The bilateral common femoral, femoral, and popliteal veins are widely patent and compress appropriate ly. The visualized calf veins and the proximal greater saphenous vein are patent. No popliteal fluid collection. IMPRESSION: No evidence of deep venous thrombosis within either lower extremity. Report Dictated By: Mesfin Borjas MD at 08/17/2018 6:24 PM Report E-Signed By: Mesfin Borjas MD at 08/17/2018 6:26 PM WSN:[id number]
[2018-08-17 18:30] VITALS: BP 118/69
[2018-08-17] MEDS ORDERED: ONDA4TAB9 PO (19:07)
== END 2018-08-17 19:27 | disposition home or self-care (01) ==
LOC: ER 16:56
DX: I50.9 Heart failure, unspecified (principal)
CPT/HCPCS: 71046; 81001; 82040; 82247; 82310; 82374; 82435; 82565; 82947; 83880; 84075; 84132; 84155; 84295; 84450; 84460; 84484; 84520; 85025; 85610; 85730; 93005; 93970; 99284